=== PATIENT | male | born 1955 | race Caucasian/White ===

== ENCOUNTER → 2018-05-24 | Outpatient (REF) | payer OTHER ==
[2018-05-24 16:58] LABS: RHEUMATOID FACTOR QUANT < 10.0 IU/ML (<15.0)
[2018-05-24 16:58] LABS: BASO # 0.1 10^3/uL (0.0-0.2); EOS # 0.5 10^3/uL (0.0-0.50); EOS % 8.8 % (0.0-3.0); HEMATOCRIT 45.3 % (42.0-52.0); HEMOGLOBIN 14.7 g/dl (13.5-17.5); IMMATURE GRANULOCYTE % 0.5 % (0-3.0); LYMPH # 1.1 10^3/uL (1.5-4.5); LYMPH % 18.5 % (24.0-44.0); MEAN CORPUSCULAR HEMOGLOBIN 29.6 pg (27.0-33.0); MEAN CORPUSCULAR HGB CONC 32.5 g/dl (32.0-36.5); MEAN CORPUSCULAR VOLUME 91.1 fl (80.0-96.0); MONO # 0.4 10^3/uL (0.0-0.8); NEUTROPHILS # 3.9 10^3/uL (1.8-7.7); NEUTROPHILS % 64.2 % (36.0-66.0); PLATELET COUNT, AUTOMATED 251 10^3/uL (150-450); RED BLOOD COUNT 4.97 10^6/uL (4.30-6.10)
[2018-05-24 17:05] LABS: ALBUMIN 3.9 GM/DL (3.2-5.2); ALBUMIN/GLOBULIN RATIO 1.15 (1.00-1.93); ALKALINE PHOSPHATASE 69 U/L (45-117); ALT/SGPT 23 U/L (12-78); ANION GAP 5 MEQ/L (8-16); AST/SGOT 15 U/L (7-37); BILIRUBIN,TOTAL 0.2 MG/DL (0.2-1.0); BLOOD UREA NITROGEN 14 MG/DL (7-18); C REACTIVE PROTEIN QUANTITATIV < 0.30 MG/DL (0.00-0.30); CALCIUM LEVEL 9.4 MG/DL (8.8-10.2); CARBON DIOXIDE LEVEL 31 MEQ/L (21-32); CHLORIDE LEVEL 106 MEQ/L (98-107); GLOMERULAR FILTRATION RATE > 60.0 (>49); GLUCOSE, FASTING 104 MG/DL (70-100); POTASSIUM SERUM 4.7 MEQ/L (3.5-5.1); SODIUM LEVEL 142 MEQ/L (136-145); THYROID STIMULATING HORMONE 0.845 uIU/ML (0.358-3.740); TOTAL PROTEIN 7.3 GM/DL (6.4-8.2); URIC ACID 5.5 MG/DL (3.5-7.2)
[2018-05-24 18:51] LABS: ERYTHROCYTE SEDIMENTATION RATE 5 mm/hr (0-20)
[2018-05-28 00:06] LABS: ANA (HEP2) Negative (.); ANGIOTENSIN 1 CONVERTING ENZYM 35 U/L (14-82); VITAMIN D 1,25 DIHYDROXY 22.5 pg/mL (19.9-79.3)
[2018-05-28 00:06] LABS: CYCLIC CITRULLINATED PEPTIDE 10 units (0-19)
[2018-05-31 00:10] LABS: HLA-B27 Negative (.)
== END ==
LOC: M SFHCLERA 10:36
DX: M19.90 Unspecified osteoarthritis, unspecified site (principal)

== ENCOUNTER → 2018-05-24 | Outpatient (CLI) | payer OTHER | LOC: M LRY 10:46 | DX: M15.4 Erosive (osteo)arthritis (principal); M25.741 Osteophyte, right hand; R22.33 Localized swelling, mass and lump, upper limb, bilateral; M89.8X4 Other specified disorders of bone, hand; M24.642 Ankylosis, left hand | CPT/HCPCS: 73130 ==

== ENCOUNTER → 2018-08-16 | Outpatient (REF) | payer OTHER ==
[2018-08-16 14:39] LABS: ALT/SGPT 28 U/L (12-78); BILIRUBIN,TOTAL 0.2 MG/DL (0.2-1.0); BLOOD UREA NITROGEN 15 MG/DL (7-18); C REACTIVE PROTEIN QUANTITATIV < 0.30 MG/DL (0.00-0.30); CALCIUM LEVEL 9.4 MG/DL (8.8-10.2); CARBON DIOXIDE LEVEL 29 MEQ/L (21-32); CHLORIDE LEVEL 106 MEQ/L (98-107); CREATININE FOR GFR 0.88 MG/DL (0.70-1.30); GLOMERULAR FILTRATION RATE > 60.0 (>49); GLUCOSE, FASTING 88 MG/DL (70-100); POTASSIUM SERUM 4.5 MEQ/L (3.5-5.1); SODIUM LEVEL 142 MEQ/L (136-145); TOTAL PROTEIN 7.2 GM/DL (6.4-8.2)
[2018-08-16 14:41] LABS: BASO % 0.6 % (0.0-1.0); EOS # 0.2 10^3/uL (0.0-0.50); EOS % 2.8 % (0.0-3.0); HEMATOCRIT 45.8 % (42.0-52.0); HEMOGLOBIN 14.7 g/dl (13.5-17.5); LYMPH # 1.2 10^3/uL (1.5-4.5); LYMPH % 22.1 % (24.0-44.0); MEAN CORPUSCULAR HEMOGLOBIN 29.9 pg (27.0-33.0); MEAN CORPUSCULAR HGB CONC 32.1 g/dl (32.0-36.5); MEAN CORPUSCULAR VOLUME 93.3 fl (80.0-96.0); MONO # 0.4 10^3/uL (0.0-0.8); MONO % 7.7 % (0.0-5.0); NEUTROPHILS # 3.5 10^3/uL (1.8-7.7); NEUTROPHILS % 65.9 % (36.0-66.0); PLATELET COUNT, AUTOMATED 274 10^3/uL (150-450); RED BLOOD COUNT 4.91 10^6/uL (4.30-6.10); WHITE BLOOD COUNT 5.4 10^3/uL (4.0-10.0)
[2018-08-16 15:28] LABS: ERYTHROCYTE SEDIMENTATION RATE 7 mm/hr (0-20)
== END ==
LOC: M SFHCPLAZ 10:57
PROVIDERS: ATTEND Internal Medicine Rheumatology
DX: M06.00 Rheumatoid arthritis without rheumatoid factor, unspecified site (principal)

== ENCOUNTER → 2021-01-28 | Outpatient (REF) | payer MEDICARE, OTHER ==
[2021-01-28 17:36] LABS: APPEARANCE, URINE CLEAR (CLEAR); BACTERIA, URINE AUTO NEGATIVE (NEGATIVE); BILIRUBIN, URINE AUTO NEGATIVE (NEGATIVE); BLOOD, URINE BLOOD NEGATIVE (NEGATIVE); COLOR, URINE YELLOW (YELLOW); GLUCOSE, URINE (UA) AUTO NEGATIVE (NEGATIVE); KETONE, URINE AUTO NEGATIVE (NEGATIVE); LEUKOCYTE ESTERASE, URINE AUTO NEGATIVE (NEGATIVE); NITRITE, URINE AUTO NEGATIVE (NEGATIVE); PROTEIN, URINE AUTO NEGATIVE (NEGATIVE); RBC, URINE AUTO 0 /HPF (0-3); SPECIFIC GRAVITY URINE AUTO 1.019 (1.002-1.035); SQUAMOUS EPITHELIAL CELL UR AU 0 /HPF (0-6); UROBILINOGEN, URINE AUTO 0.2 mg/dL (0.0-2.0); WBC, URINE AUTO 0 /HPF (0-3)
[2021-01-28 18:00] LABS: TOTAL PROTEIN,RANDOM URINE 8.3 MG/DL (0.0-12.0)
[2021-01-29 16:49] LABS: BASO # 0.1 10^3/uL (0.0-0.2); BASO % 1.2 % (0.0-1.0); EOS # 0.3 10^3/uL (0.0-0.5); EOS % 4.5 % (0.0-3.0); HEMATOCRIT 47.2 % (42.0-52.0); HEMOGLOBIN 15.1 g/dl (13.5-17.5); LYMPH # 1.3 10^3/uL (1.5-5.0); LYMPH % 19.3 % (24.0-44.0); MEAN CORPUSCULAR HEMOGLOBIN 29.1 pg (27.0-33.0); MEAN CORPUSCULAR VOLUME 90.9 fl (80.0-96.0); MONO # 0.3 10^3/uL (0.0-0.8); MONO % 5.1 % (2.0-8.0); NEUTROPHILS # 4.6 10^3/uL (1.5-8.5); NEUTROPHILS % 69.4 % (36.0-66.0); PLATELET COUNT, AUTOMATED 315 10^3/uL (150-450); RED BLOOD COUNT 5.19 10^6/uL (4.30-6.10); WHITE BLOOD COUNT 6.6 10^3/uL (4.0-10.0)
[2021-01-29 17:19] LABS: ALBUMIN 4.1 GM/DL (3.2-5.2); ALT/SGPT 37 U/L (12-78); BILIRUBIN,DIRECT < 0.1 MG/DL (0.0-0.2); BILIRUBIN,TOTAL 0.3 MG/DL (0.2-1.0); BLOOD UREA NITROGEN 18 MG/DL (7-18); CALCIUM LEVEL 9.4 MG/DL (8.8-10.2); CARBON DIOXIDE LEVEL 26 MEQ/L (21-32); CHLORIDE LEVEL 108 MEQ/L (98-107); COMPLEMENT C3 130 MG/DL (90-180); COMPLEMENT C4 30 MG/DL (10-40); GLOMERULAR FILTRATION RATE > 60.0 (>49); GLUCOSE, FASTING 113 MG/DL (70-100); POTASSIUM SERUM 5.1 MEQ/L (3.5-5.1); SODIUM LEVEL 141 MEQ/L (136-145); TOTAL PROTEIN 7.4 GM/DL (6.4-8.2)
[2021-01-29 17:26] LABS: HEPATITIS B SURFACE ANTIBODY NEGATIVE (POSITIVE)
[2021-01-29 17:37] LABS: HEPATITIS B SURFACE ANTIGEN NEGATIVE (NEGATIVE)
[2021-01-29 18:05] LABS: HEPATITIS C VIRUS ABY INDEX 0.1 INDEX (<0.8)
[2021-01-29 20:32] LABS: ERYTHROCYTE SEDIMENTATION RATE 2 mm/hr (0-20)
[2021-01-30 14:49] LABS: DRVV SCREEN 45.8 SEC
[2021-01-30 14:55] LABS: PTT LUPUS TYPE ANTICOAG SCREEN 1.2 (0-1.2)
[2021-01-30 15:03] LABS: DRVV CONFIRM 38.1 SEC; NORMALIZED RATIO 1.2 (0.00-1.20)
[2021-02-03 14:08] LABS: HEXAGONAL PHASE PHOSPHOLIPID 0 sec (0-11)
[2021-02-04 13:08] LABS: COMPLEMENT TOTAL (CH50) > 60 U/mL (>41); HEPATITIS B CORE ANTIBODY IGG Negative (Negative); HLA-B27 Negative (.)
== END ==
LOC: M SFHCRHEU 15:36
PROVIDERS: ATTEND Internal Medicine
DX: M06.4 Inflammatory polyarthropathy (principal)

== ENCOUNTER → 2021-08-29 | Outpatient (REF) | payer MEDICARE, OTHER | LOC: M SFHCRHEU 12:48 | PROVIDERS: ATTEND Internal Medicine | DX: L40.50 Arthropathic psoriasis, unspecified (principal) ==

== ENCOUNTER 2021-09-17 11:46 | Outpatient (CLI) | payer MEDICARE ==
[2021-09-17] VITALS (8 sets, daily range): BP systolic 133–156; BP diastolic 8–85
[~2021-09-17] VITALS: Ht 154.9 cm; Wt 66.3 kg
[~2021-09-17 11:46] MED LIST: ALBUTEROL SULFATE 2.5 MG/0.5 ML INH NEB SOLN INH PRN; EPINEPHrine INJ 1 MG/ML 1ML AMP IM PRN; diphenhydrAMINE 50MG/ML VIAL (J1200) IV PRN; methylPREDNISolone 125MG 2ML VIAL IV PRN
[2021-09-17] MEDS ORDERED: diphenhydrAMINE 50MG CAP PO ONE (12:00)
[2021-09-17] MEDS ORDERED: inFLIXimab INJECTION 300 MG in NS 220 ML IV ONE (12:30)
[2021-09-17] MEDS ORDERED: ACETAMINOPHEN 650MG PO PRIOR TO INFUSION PO ONE (12:30)
== END 2021-09-17 15:20 | disposition home or self-care (01) ==
LOC: M INFU 11:46
PROVIDERS: ATTEND Internal Medicine
DX: L40.50 Arthropathic psoriasis, unspecified (principal)
CPT/HCPCS: 96413; 96415; J1745

== ENCOUNTER 2021-10-01 11:35 | Outpatient (CLI) | payer MEDICARE ==
[~2021-10-01] VITALS: Ht 154.9 cm; Wt 66.3 kg
[2021-10-01 11:50] VITALS: BP 168/72
[2021-10-01] MEDS ORDERED: diphenhydrAMINE 50MG/ML VIAL (J1200) IV ONE (12:30)
[2021-10-01] MEDS ORDERED: ACETAMINOPHEN TAB 650MG DOSE (2X325MG) PO ONE (12:30)
[2021-10-01] MEDS ORDERED: NS 1,000 ML IV SCH (12:30)
[2021-10-01] MEDS ORDERED: inFLIXimab INJECTION 300 MG in NS 220 ML IV ONE (12:30)
[2021-10-01 13:15] VITALS: BP 133/74
[2021-10-01 13:45] VITALS: BP 124/69
[2021-10-01 14:15] VITALS: BP 134/66
[2021-10-01 15:20] VITALS: BP 141/74
== END 2021-10-01 15:20 | disposition home or self-care (01) ==
LOC: M INFU 11:35
PROVIDERS: ATTEND Internal Medicine
DX: L40.50 Arthropathic psoriasis, unspecified (principal)
CPT/HCPCS: 96367; 96413; 96415; J1200; J1745

== ENCOUNTER 2022-01-07 08:47 | Outpatient (CLI) | payer MEDICARE, OTHER ==
[2022-01-07] VITALS (7 sets, daily range): BP systolic 100–136; BP diastolic 64–75
[~2022-01-07] VITALS: Ht 154.9 cm; Wt 64.5 kg
[2022-01-07] MEDS ORDERED: NS 1,000 ML IV SCH (09:00)
[2022-01-07] MEDS ORDERED: inFLIXimab INJECTION 300 MG in NS 220 ML IV ONE (09:00)
[2022-01-07] MEDS ORDERED: ACETAMINOPHEN 650MG ER TAB (TYLENOL ARTHRITIS) PO ONE (09:00)
[2022-01-07] MEDS ORDERED: diphenhydrAMINE 50MG PO PRIOR TO INFUSION PO ONE (09:00)
== END 2022-01-07 11:35 | disposition home or self-care (01) ==
LOC: M INFU 08:47
PROVIDERS: ATTEND Internal Medicine
DX: L40.50 Arthropathic psoriasis, unspecified (principal)
CPT/HCPCS: 96413; 96415; J1745

== ENCOUNTER 2022-01-21 11:50 | Outpatient (CLI) | payer MEDICARE, OTHER ==
[2022-01-21] VITALS (7 sets, daily range): BP systolic 111–137; BP diastolic 63–74
[~2022-01-21] VITALS: Ht 154.9 cm; Wt 64.5 kg
[2022-01-21] MEDS ORDERED: inFLIXimab INJECTION 300 MG in NS 220 ML IV ONE (12:00)
[2022-01-21] MEDS ORDERED: EPINEPHrine INJ 1 MG/ML 1ML AMP IM PRN (12:00)
[2022-01-21] MEDS ORDERED: methylPREDNISolone 125MG 2ML VIAL IV PRN (12:00)
[2022-01-21] MEDS ORDERED: diphenhydrAMINE 50MG/ML VIAL (J1200) IV PRN (12:00)
[2022-01-21] MEDS ORDERED: ACETAMINOPHEN 650MG ER TAB (TYLENOL ARTHRITIS) PO ONE (12:00)
[2022-01-21] MEDS ORDERED: NS 1,000 ML IV SCH (12:00)
[2022-01-21] MEDS ORDERED: ALBUTEROL SULFATE 2.5 MG/0.5 ML INH NEB SOLN INH PRN (12:00)
[2022-01-21] MEDS ORDERED: diphenhydrAMINE 50MG PO PRIOR TO INFUSION PO ONE (12:00)
== END 2022-01-21 15:10 ==
LOC: M INFU 11:50
PROVIDERS: ATTEND Internal Medicine
DX: L40.50 Arthropathic psoriasis, unspecified (principal)
CPT/HCPCS: 96413; 96415; J1745

== ENCOUNTER 2022-02-18 11:35 | Outpatient (CLI) | payer MEDICARE, OTHER ==
[~2022-02-18] VITALS: Ht 154.9 cm; Wt 66.5 kg
[2022-02-18 11:40] VITALS: BP 145/70
[2022-02-18] MEDS ORDERED: diphenhydrAMINE 50MG PO PRIOR TO INFUSION PO ONE (12:00)
[2022-02-18] MEDS ORDERED: NS 1,000 ML IV SCH (12:00)
[2022-02-18] MEDS ORDERED: ACETAMINOPHEN 650MG ER TAB (TYLENOL ARTHRITIS) PO ONE (12:00)
[2022-02-18] MEDS ORDERED: inFLIXimab INJECTION 300 MG in NS 220 ML IV ONE (12:00)
[2022-02-18 12:35] VITALS: BP 133/71
[2022-02-18 13:40] VITALS: BP 131/79
[2022-02-18 14:12] VITALS: BP 144/91
== END 2022-02-18 13:45 ==
LOC: M INFU 11:35
PROVIDERS: ATTEND Internal Medicine
DX: L40.50 Arthropathic psoriasis, unspecified (principal)
CPT/HCPCS: 96365; J1745

== ENCOUNTER 2022-04-15 11:54 | Outpatient (CLI) | payer MEDICARE, OTHER ==
[~2022-04-15] VITALS: Ht 154.9 cm; Wt 66.5 kg
[2022-04-15] MEDS ORDERED: NS 1,000 ML IV SCH (12:00)
[2022-04-15] MEDS ORDERED: inFLIXimab INJECTION 300 MG in NS 220 ML IV ONE (12:00)
[2022-04-15] MEDS ORDERED: diphenhydrAMINE 50MG PO PRIOR TO INFUSION PO ONE (12:00)
[2022-04-15] MEDS ORDERED: ACETAMINOPHEN 650MG ER TAB (TYLENOL ARTHRITIS) PO ONE (12:00)
[2022-04-15 12:05] VITALS: BP 137/60
[2022-04-15 12:55] VITALS: BP 130/76
[2022-04-15 13:45] VITALS: BP 118/61
== END 2022-04-15 13:45 | disposition home or self-care (01) ==
LOC: M INFU 11:54
PROVIDERS: ATTEND Internal Medicine
DX: L40.50 Arthropathic psoriasis, unspecified (principal)
CPT/HCPCS: 96413; J1745

== ENCOUNTER 2022-06-10 11:25 | Outpatient (CLI) | payer MEDICARE, OTHER ==
[~2022-06-10] VITALS: Ht 154.9 cm; Wt 66.5 kg
[2022-06-10 11:25] VITALS: BP 159/79
[~2022-06-10 11:25] MED LIST changes: -diphenhydrAMINE 50MG/ML VIAL (J1200) IV PRN; +diphenhydrAMINE 50MG/ML VIAL IV PRN
[2022-06-10] MEDS ORDERED: diphenhydrAMINE 50MG PO PRIOR TO INFUSION PO ONE (11:30)
[2022-06-10] MEDS ORDERED: ACETAMINOPHEN 650MG ER TAB (TYLENOL ARTHRITIS) PO ONE (11:30)
[2022-06-10] MEDS ORDERED: inFLIXimab INJECTION 300 MG in NS 220 ML IV ONE (11:30)
[2022-06-10 12:30] VITALS: BP 130/96
[2022-06-10 13:25] VITALS: BP 140/80
== END 2022-06-10 13:25 | disposition home or self-care (01) ==
LOC: M INFU 11:25
PROVIDERS: ATTEND Internal Medicine
DX: L40.50 Arthropathic psoriasis, unspecified (principal)
CPT/HCPCS: 96413; J1745

== ENCOUNTER 2022-08-07 09:30 | Outpatient (CLI) | payer MEDICARE, OTHER ==
[~2022-08-07] VITALS: Ht 154.9 cm; Wt 67.6 kg
[2022-08-07 09:30] VITALS: BP 144/76
[~2022-08-07 09:30] MED LIST changes: +ACETAMINOPHEN TAB 650MG DOSE (2X325MG) PO ONE; -ALBUTEROL SULFATE 2.5 MG/0.5 ML INH NEB SOLN INH PRN; +ALBUTEROL SULFATE 2.5MG/0.5ML INH NEB SOLN INH PRN; +diphenhydrAMINE 25MG PO PRIOR TO INFUSION PO ONE; +inFLIXimab INJECTION 300 MG in NS 220 ML IV ONE
[2022-08-07 10:50] VITALS: BP 126/70
[2022-08-07 11:45] VITALS: BP 139/75
== END 2022-08-07 11:45 | disposition home or self-care (01) ==
LOC: M INFU 09:30
PROVIDERS: ATTEND Internal Medicine
DX: L40.50 Arthropathic psoriasis, unspecified (principal)
CPT/HCPCS: 96413; J1745

== ENCOUNTER 2022-10-02 09:00 | Outpatient (CLI) | payer MEDICARE, OTHER ==
[~2022-10-02] VITALS: Ht 154.9 cm; Wt 67.6 kg
[2022-10-02 09:00] VITALS: BP 147/82
[~2022-10-02 09:00] MED LIST changes: -ACETAMINOPHEN TAB 650MG DOSE (2X325MG) PO ONE; -diphenhydrAMINE 25MG PO PRIOR TO INFUSION PO ONE; -inFLIXimab INJECTION 300 MG in NS 220 ML IV ONE
[2022-10-02] MEDS ORDERED: inFLIXimab INJECTION 300 MG in NS 220 ML IV ONE (09:30)
[2022-10-02] MEDS ORDERED: ACETAMINOPHEN 650MG PO PRIOR TO INFUSION PO ONE (09:30)
[2022-10-02] MEDS ORDERED: NS 1,000 ML IV SCH (09:30)
[2022-10-02] MEDS ORDERED: diphenhydrAMINE 50MG PO PRIOR TO INFUSION PO ONE (09:30)
[2022-10-02 10:00] VITALS: BP 142/76
[2022-10-02 11:10] VITALS: BP 142/80
== END 2022-10-02 11:10 | disposition home or self-care (01) ==
LOC: M INFU 09:00
PROVIDERS: ATTEND Internal Medicine
DX: L40.52 Psoriatic arthritis mutilans (principal)
CPT/HCPCS: 96413; J1745

== ENCOUNTER 2022-11-27 09:11 | Outpatient (CLI) | payer MEDICARE ==
[~2022-11-27] VITALS: Ht 154.9 cm; Wt 67.6 kg
[2022-11-27 09:30] VITALS: BP 142/77
[2022-11-27] MEDS ORDERED: ACETAMINOPHEN 650MG PO PRIOR TO INFUSION PO ONE (09:30)
[2022-11-27] MEDS ORDERED: diphenhydrAMINE 50MG PO PRIOR TO INFUSION PO ONE (09:30)
[2022-11-27] MEDS ORDERED: NS 1,000 ML IV SCH (09:30)
[2022-11-27] MEDS ORDERED: inFLIXimab INJECTION 300 MG in NS 220 ML IV ONE (09:30)
[2022-11-27 10:09] VITALS: BP 129/75
[2022-11-27 11:01] VITALS: BP 137/77
== END 2022-11-27 11:00 | disposition home or self-care (01) ==
LOC: M INFU 09:11
PROVIDERS: ATTEND Internal Medicine
DX: L40.52 Psoriatic arthritis mutilans (principal)
CPT/HCPCS: 96413; J1745

== ENCOUNTER → 2022-12-07 | Outpatient (REF) | payer MEDICARE | LOC: M SFHCRHEU 15:53 | PROVIDERS: ATTEND Internal Medicine | DX: Z53.9 Procedure and treatment not carried out, unspecified reason (principal) ==

== ENCOUNTER 2023-01-22 09:45 | Outpatient (CLI) | payer MEDICARE, OTHER ==
[~2023-01-22] VITALS: Ht 157.5 cm; Wt 67.5 kg
[~2023-01-22 09:45] MED LIST changes: +ACETAMINOPHEN 650MG PO PRIOR TO INFUSION PO ONE; +diphenhydrAMINE 50MG PO PRIOR TO INFUSION PO ONE; +inFLIXimab INJECTION 300 MG in NS 220 ML IV ONE
[2023-01-22 10:06] VITALS: BP 157/79; TEMP 97.6; O2SAT 95
[2023-01-22 10:37] VITALS: BP 127/74; TEMP 97.9; O2SAT 97
[2023-01-22 11:19] VITALS: BP 131/76; O2SAT 97
== END 2023-01-22 11:25 ==
LOC: M INFU 09:45
PROVIDERS: ATTEND Internal Medicine
DX: L40.52 Psoriatic arthritis mutilans (principal)
CPT/HCPCS: 96413; J1745

== ENCOUNTER 2023-03-19 09:15 | Outpatient (CLI) | payer MEDICARE, MEDICAID ==
[~2023-03-19] VITALS: Ht 157.5 cm; Wt 66.9 kg
[~2023-03-19 09:15] MED LIST changes: -ACETAMINOPHEN 650MG PO PRIOR TO INFUSION PO ONE; -diphenhydrAMINE 50MG PO PRIOR TO INFUSION PO ONE; -inFLIXimab INJECTION 300 MG in NS 220 ML IV ONE
[2023-03-19 09:33] VITALS: BP 147/78; O2SAT 96
[2023-03-19] MEDS ORDERED: inFLIXimab INJECTION 300 MG in NS 220 ML IV ONE (10:00)
[2023-03-19] MEDS ORDERED: ACETAMINOPHEN 650MG ER TAB (TYLENOL ARTHRITIS) PO ONE (10:00)
[2023-03-19] MEDS ORDERED: diphenhydrAMINE 50MG PO PRIOR TO INFUSION PO ONE (10:00)
[2023-03-19 10:40] VITALS: BP 142/72; TEMP 98; O2SAT 98
[2023-03-19 11:25] VITALS: BP 145/73; TEMP 98.6; O2SAT 99
== END 2023-03-19 11:30 | disposition home or self-care (01) ==
LOC: M INFU 09:15
PROVIDERS: ATTEND Internal Medicine
DX: L40.50 Arthropathic psoriasis, unspecified (principal)
CPT/HCPCS: 96413; J1745

== ENCOUNTER 2023-05-14 09:25 | Outpatient (CLI) | payer MEDICARE, OTHER ==
[~2023-05-14] VITALS: Ht 157.5 cm; Wt 68.4 kg
[2023-05-14 09:30] VITALS: BP 134/78; TEMP 97; O2SAT 95
[2023-05-14] MEDS ORDERED: diphenhydrAMINE 50MG PO PRIOR TO INFUSION PO ONE (09:45)
[2023-05-14] MEDS ORDERED: inFLIXimab INJECTION 300 MG in NS 220 ML IV ONE (09:45)
[2023-05-14] MEDS ORDERED: ACETAMINOPHEN 650MG ER TAB (TYLENOL ARTHRITIS) PO ONE (09:45)
[2023-05-14 10:55] VITALS: BP 120/69; TEMP 97.3; O2SAT 97
[2023-05-14 11:40] VITALS: BP 133/71; O2SAT 100
== END 2023-05-14 11:40 ==
LOC: M INFU 09:25
PROVIDERS: ATTEND Internal Medicine
DX: L40.50 Arthropathic psoriasis, unspecified (principal)
CPT/HCPCS: 96413; J1745

== ENCOUNTER 2023-09-03 09:11 | Outpatient (CLI) | payer MEDICARE, OTHER ==
[~2023-09-03] VITALS: Ht 157.5 cm; Wt 68.0 kg
[2023-09-03 09:20] VITALS: BP 137/72; O2SAT 97
[2023-09-03] MEDS: diphenhydrAMINE 50MG PO PRIOR TO INFUSION PO ONE (09:29)
[2023-09-03] MEDS: ACETAMINOPHEN 650MG PO PRIOR TO INFUSION PO ONE (09:29)
[2023-09-03] MEDS ORDERED: NS 1,000 ML IV SCH (09:30)
[2023-09-03] MEDS: inFLIXimab INJECTION 300 MG in NS 220 ML IV ONE (10:07)
[2023-09-03 10:30] VITALS: BP 135/74; O2SAT 100
[2023-09-03 11:15] VITALS: BP 144/79; O2SAT 99
== END 2023-09-03 11:20 ==
LOC: M INFU 09:11
PROVIDERS: ATTEND Internal Medicine
DX: L40.50 Arthropathic psoriasis, unspecified (principal)
CPT/HCPCS: 96413; J1745

== ENCOUNTER → 2023-10-07 | Outpatient (REF) | payer MEDICARE | LOC: M SFHCRHEU 12:07 | PROVIDERS: ATTEND Internal Medicine | DX: L40.50 Arthropathic psoriasis, unspecified (principal) ==

== ENCOUNTER → 2023-10-29 | Outpatient (CLI) | payer MEDICARE, OTHER ==
[2023-10-29] MEDS: ACETAMINOPHEN 650MG ER TAB (TYLENOL ARTHRITIS) PO ONE (09:57)
[2023-10-29] MEDS: diphenhydrAMINE 50MG CAP PO ONE (09:57)
[2023-10-29 09:59] VITALS: BP 131/62; TEMP 97.8; O2SAT 96
[2023-10-29] MEDS: inFLIXimab INJECTION 400 MG in NS 210 ML IV ONE (10:47)
[2023-10-29 11:00] VITALS: BP 115/64; O2SAT 97
[2023-10-29 11:45] VITALS: BP 123/66; O2SAT 99
== END ==
LOC: M INFU 09:31
PROVIDERS: ATTEND Internal Medicine
DX: L40.50 Arthropathic psoriasis, unspecified (principal)
CPT/HCPCS: 96413; J1745

== ENCOUNTER 2023-12-24 09:38 | Outpatient (CLI) | payer MEDICARE ==
[~2023-12-24] VITALS: Ht 157.5 cm; Wt 65.9 kg
[2023-12-24 09:50] VITALS: BP 137/67; O2SAT 96
[2023-12-24] MEDS: ACETAMINOPHEN TAB 650MG DOSE (2X325MG) PO ONE (10:32)
[2023-12-24] MEDS: diphenhydrAMINE 25MG CAP PO ONE (10:32)
[2023-12-24] MEDS: inFLIXimab INJECTION 400 MG in NS 210 ML IV ONE (10:45)
[2023-12-24 11:10] VITALS: BP 122/70; O2SAT 98
[2023-12-24 11:56] VITALS: BP 155/77; O2SAT 99
== END 2023-12-24 12:00 ==
LOC: M INFU 09:38
PROVIDERS: ATTEND Internal Medicine
DX: L40.50 Arthropathic psoriasis, unspecified (principal)
CPT/HCPCS: 96413; J1745

== ENCOUNTER → 2024-01-21 | Outpatient (CLI) | payer MEDICARE | LOC: M PLAIMG 07:41 | PROVIDERS: ATTEND Physician Assistant Medical | DX: Z53.9 Procedure and treatment not carried out, unspecified reason (principal) ==

== ENCOUNTER → 2024-02-03 | Outpatient (CLI) | payer MEDICARE | LOC: M PLARAD 09:12 | PROVIDERS: ATTEND Physician Assistant Medical | DX: M25.551 Pain in right hip (principal); M16.0 Bilateral primary osteoarthritis of hip; M25.452 Effusion, left hip; M25.451 Effusion, right hip ==

== ENCOUNTER 2024-02-18 08:55 | Outpatient (CLI) | payer MEDICARE ==
[~2024-02-18] VITALS: Ht 157.5 cm; Wt 65.5 kg
[2024-02-18 08:55] VITALS: BP 157/68; O2SAT 95
[2024-02-18] MEDS: ACETAMINOPHEN 650MG ER TAB (TYLENOL ARTHRITIS) PO ONE (09:15)
[2024-02-18] MEDS: diphenhydrAMINE 50MG PO PRIOR TO INFUSION PO ONE (09:15)
[2024-02-18] MEDS: inFLIXimab INJECTION 400 MG in NS 210 ML IV ONE (09:22)
[2024-02-18 09:40] VITALS: BP 134/66; O2SAT 96
[2024-02-18 10:30] VITALS: BP 124/68; O2SAT 96
== END 2024-02-18 10:30 | disposition home or self-care (01) ==
LOC: M INFU 08:55
PROVIDERS: ATTEND Internal Medicine
DX: L40.50 Arthropathic psoriasis, unspecified (principal)
CPT/HCPCS: 96413; J1745

== ENCOUNTER 2024-04-14 08:40 | Outpatient (CLI) | payer MEDICARE ==
[~2024-04-14] VITALS: Ht 157.5 cm; Wt 63.6 kg
[2024-04-14 08:40] VITALS: BP 142/67; O2SAT 98
[2024-04-14] MEDS: ACETAMINOPHEN 650MG ER TAB (TYLENOL ARTHRITIS) PO ONE (08:54)
[2024-04-14] MEDS: diphenhydrAMINE 50MG PO PRIOR TO INFUSION PO ONE (08:54)
[2024-04-14] MEDS: inFLIXimab INJECTION 400 MG in NS 210 ML IV ONE (09:24)
[2024-04-14 10:25] VITALS: BP 126/63; O2SAT 99
== END 2024-04-14 10:30 ==
LOC: M INFU 08:40
PROVIDERS: ATTEND Internal Medicine
DX: L40.50 Arthropathic psoriasis, unspecified (principal)
CPT/HCPCS: 96413; J1745

== ENCOUNTER → 2024-05-19 | Outpatient (CLI) | payer MEDICARE | LOC: M PLARAD 10:35 | PROVIDERS: ATTEND Orthopaedic Surgery Hand Surgery | DX: M16.10 Unilateral primary osteoarthritis, unspecified hip (principal); M47.816 Spondylosis without myelopathy or radiculopathy, lumbar region; M47.817 Spondylosis without myelopathy or radiculopathy, lumbosacral region; M41.9 Scoliosis, unspecified ==

== ENCOUNTER 2024-06-09 08:45 | Outpatient (CLI) | payer MEDICARE ==
[~2024-06-09] VITALS: Ht 157.5 cm; Wt 65.9 kg
[2024-06-09 08:55] VITALS: BP 134/70; O2SAT 97
[2024-06-09] MEDS: diphenhydrAMINE 50MG PO PRIOR TO INFUSION PO ONE (09:03)
[2024-06-09] MEDS: ACETAMINOPHEN 650MG ER TAB (TYLENOL ARTHRITIS) PO ONE (09:03)
[2024-06-09] MEDS: inFLIXimab INJECTION 400 MG in NS 210 ML IV ONE (09:34)
[2024-06-09 10:34] VITALS: BP 131/69; O2SAT 96
== END 2024-06-09 10:40 ==
LOC: M INFU 08:45
PROVIDERS: ATTEND Internal Medicine
DX: L40.50 Arthropathic psoriasis, unspecified (principal)
CPT/HCPCS: 96365; J1745

== ENCOUNTER 2024-08-04 08:54 | Outpatient (CLI) | payer MEDICARE ==
[~2024-08-04] VITALS: Ht 154.9 cm; Wt 67.0 kg
[2024-08-04 09:15] VITALS: BP 145/71; O2SAT 94
[2024-08-04] MEDS: diphenhydrAMINE 50MG PO PRIOR TO INFUSION PO ONE (09:21)
[2024-08-04] MEDS: ACETAMINOPHEN 650MG ER TAB (TYLENOL ARTHRITIS) PO ONE (09:21)
[2024-08-04] MEDS: inFLIXimab INJECTION 400 MG in NS 210 ML IV ONE (09:53)
[2024-08-04 11:00] VITALS: BP 160/75; O2SAT 98
== END 2024-08-04 11:00 | disposition home or self-care (01) ==
LOC: M INFU 08:54
PROVIDERS: ATTEND Internal Medicine
DX: L40.50 Arthropathic psoriasis, unspecified (principal)
CPT/HCPCS: 96413; J1745

== ENCOUNTER → 2024-09-20 | Outpatient (CLI) | payer MEDICARE | LOC: M PLAIMG 12:12 | PROVIDERS: ATTEND Physical Medicine & Rehabilitation | DX: M54.6 Pain in thoracic spine (principal) ==

== ENCOUNTER 2024-09-29 09:15 | Outpatient (CLI) | payer MEDICARE ==
[~2024-09-29] VITALS: Ht 157.5 cm; Wt 66.0 kg
[2024-09-29 09:10] VITALS: BP 136/67; O2SAT 97
[2024-09-29] MEDS: diphenhydrAMINE 25MG PO PRIOR TO INFUSION PO ONE (09:13)
[2024-09-29] MEDS: ACETAMINOPHEN 650MG PO PRIOR TO INFUSION PO ONE (09:13)
[2024-09-29] MEDS ORDERED: NS (Normal Saline) 0.9% 1,000 ML IV SCH (10:00)
[2024-09-29] MEDS: inFLIXimab INJECTION 400 MG in NS 210 ML IV ONE (10:05)
[2024-09-29 10:20] VITALS: BP 142/78; TEMP 98; O2SAT 98
[2024-09-29 11:15] VITALS: BP 129/62; O2SAT 97
== END 2024-09-29 11:15 | disposition home or self-care (01) ==
LOC: M INFU 09:15
PROVIDERS: ATTEND Internal Medicine
DX: L40.52 Psoriatic arthritis mutilans (principal)
CPT/HCPCS: 96413; J1745

== ENCOUNTER → 2024-10-18 | Outpatient (CLI) | payer MEDICARE ==
[2024-10-18 13:32] LABS: COLLAGEN EPINEPHRINE 134 SECONDS (74-162)
== END ==
LOC: M LAB 12:00
PROVIDERS: ATTEND Student in an Organized Health Care Education/Training Program
DX: Z01.818 Encounter for other preprocedural examination (principal)

== ENCOUNTER 2024-11-24 09:59 | Outpatient (CLI) | payer MEDICARE ==
[~2024-11-24] VITALS: Ht 157.5 cm; Wt 66.0 kg
[~2024-11-24 09:59] MED LIST changes: +ALBUTEROL SULFATE 2.5MG/0.5ML INH CONCENTRATE NEB SOLN INH PRN; -ALBUTEROL SULFATE 2.5MG/0.5ML INH NEB SOLN INH PRN
[2024-11-24 10:25] VITALS: BP 142/80; O2SAT 98
[2024-11-24] MEDS: diphenhydrAMINE 50MG PO PRIOR TO INFUSION PO ONE (10:44)
[2024-11-24] MEDS: ACETAMINOPHEN 650MG ER TAB (TYLENOL ARTHRITIS) PO ONE (10:44)
[2024-11-24] MEDS: inFLIXimab INJECTION 400 MG in NS 210 ML IV ONE (11:10)
[2024-11-24 11:27] VITALS: BP 126/67; O2SAT 95
[2024-11-24 12:13] VITALS: BP 121/65; O2SAT 97
== END 2024-11-24 12:15 ==
LOC: M INFU 09:59
PROVIDERS: ATTEND Internal Medicine
DX: L40.50 Arthropathic psoriasis, unspecified (principal)
CPT/HCPCS: 96413; J1745

== ENCOUNTER 2025-01-22 10:04 | Outpatient (CLI) | payer MEDICARE ==
[~2025-01-22] VITALS: Ht 157.5 cm; Wt 65.9 kg
[~2025-01-22 10:04] MED LIST changes: +ALBUTEROL SULFATE 2.5 MG/0.5 ML INH CONCENTRATE NEB SOLN INH PRN; -ALBUTEROL SULFATE 2.5MG/0.5ML INH CONCENTRATE NEB SOLN INH PRN; +diphenhydrAMINE 50 MG/ML VIAL IV PRN; -diphenhydrAMINE 50MG/ML VIAL IV PRN; -methylPREDNISolone 125MG 2ML VIAL IV PRN
[2025-01-22 10:35] VITALS: BP 153/63; O2SAT 97
[2025-01-22] MEDS: ACETAMINOPHEN 650 MG ER TAB PO ONE (11:18)
[2025-01-22] MEDS: inFLIXimab INJECTION 500 MG in NS 200 ML IV ONE (11:38)
[2025-01-22 12:45] VITALS: BP 150/65; O2SAT 99
== END 2025-01-22 12:45 | disposition home or self-care (01) ==
LOC: M INFU 10:04
PROVIDERS: ATTEND Internal Medicine
DX: L40.50 Arthropathic psoriasis, unspecified (principal)
CPT/HCPCS: 96413; J1745

== ENCOUNTER → 2025-02-13 | Outpatient (REF) | payer MEDICARE ==
[2025-02-13 19:00] LABS: BASO # 0.0 10^3/uL (0.0-0.2); BASO % 0.6 % (0.0-1.0); EOS # 0.4 10^3/uL (0.0-0.5); EOS % 5.2 % (0.0-3.0); LYMPH # 1.9 10^3/uL (1.5-5.0); LYMPH % 27.2 % (24.0-44.0); MONO # 0.7 10^3/uL (0.0-0.8); MONO % 10.0 % (2.0-8.0); NEUTROPHILS # 3.9 10^3/uL (1.5-8.5); NEUTROPHILS % 56.9 % (36.0-66.0); PLATELET COUNT, AUTOMATED 209 10^3/uL (150-450)
[2025-02-13 19:15] LABS: C REACTIVE PROTEIN QUANTITATIV < 0.50 MG/DL (<1.0)
[2025-02-13 19:16] LABS: ALT/SGPT 27 U/L (7.0-40); AST/SGOT 25 U/L (<34); CALCIUM LEVEL 9.4 MG/DL (8.3-10.6); CARBON DIOXIDE LEVEL 25 MMOL/L (20-31); CHLORIDE LEVEL 107 MMOL/L (98-107); CREATININE FOR GFR 0.93 MG/DL (0.70-1.30); GLOMERULAR FILTRATION RATE 88.9 (>49); POTASSIUM SERUM 4.1 MMOL/L (3.5-5.1); SODIUM LEVEL 146 MMOL/L (136-145)
[2025-02-13 19:24] LABS: ERYTHROCYTE SEDIMENTATION RATE 9 mm/hr (0-20)
== END ==
LOC: M SFHCRHEU 16:07
PROVIDERS: ATTEND Internal Medicine
DX: L40.50 Arthropathic psoriasis, unspecified (principal)

== ENCOUNTER 2025-03-20 10:22 | Outpatient (CLI) | payer MEDICARE ==
[~2025-03-20] VITALS: Ht 157.5 cm; Wt 67.5 kg
[2025-03-20 10:30] VITALS: BP 135/61; O2SAT 98
[2025-03-20] MEDS: ACETAMINOPHEN 650 MG ER TAB PO ONE (10:35)
[2025-03-20] MEDS: inFLIXimab INJECTION 500 MG in NS 200 ML IV ONE (11:06)
[2025-03-20 12:10] VITALS: BP 129/60; O2SAT 100
== END 2025-03-20 12:16 ==
LOC: M INFU 10:22
PROVIDERS: ATTEND Internal Medicine
DX: L40.50 Arthropathic psoriasis, unspecified (principal)
CPT/HCPCS: 96413; J1745

== ENCOUNTER → 2025-05-03 | Outpatient (REF) | payer MEDICARE ==
[2025-05-03 18:58] LABS: BASO # 0.0 10^3/uL (0.0-0.2); BASO % 0.6 % (0.0-1.0); EOS # 0.5 10^3/uL (0.0-0.5); EOS % 7.0 % (0.0-3.0); LYMPH # 1.4 10^3/uL (1.5-5.0); LYMPH % 19.9 % (24.0-44.0); MONO # 0.6 10^3/uL (0.0-0.8); MONO % 9.0 % (2.0-8.0); NEUTROPHILS # 4.5 10^3/uL (1.5-8.5); NEUTROPHILS % 63.2 % (36.0-66.0); PLATELET COUNT, AUTOMATED 239 10^3/uL (150-450)
[2025-05-03 19:30] LABS: C REACTIVE PROTEIN QUANTITATIV < 0.50 MG/DL (<1.0)
[2025-05-03 19:33] LABS: ALT/SGPT 24 U/L (7.0-40); AST/SGOT 22 U/L (<34); CALCIUM LEVEL 9.2 MG/DL (8.3-10.6); CARBON DIOXIDE LEVEL 26 MMOL/L (20-31); CHLORIDE LEVEL 107 MMOL/L (98-107); CREATININE FOR GFR 0.96 MG/DL (0.70-1.30); GLOMERULAR FILTRATION RATE 85.6 (>49); POTASSIUM SERUM 4.5 MMOL/L (3.5-5.1); SODIUM LEVEL 144 MMOL/L (136-145)
== END ==
LOC: M SFHCRHEU 13:47
PROVIDERS: ATTEND Internal Medicine
DX: L40.50 Arthropathic psoriasis, unspecified (principal)